=== PATIENT | female | born 1970 | race Caucasian/White ===

== ENCOUNTER 2018-07-14 07:00 | Inpatient (IN) | payer OTHER ==
[~2018-07-14 07:00] MED LIST: ASA-EC81 MG PO; COZAAR100 MG PO; GLUCOPHAGE XR500 MG PO; HUMULIN 70100 UNIT/2 SUBCUTANEO; ISORDIL10 MG PO; ISOSORBIDE MONO10 MG PO; LANTUS SOL100 UNIT/1 SUBCUTANEO; NORVASC5 MG PO; VERAPAMIL ER120 MG PO
== END 2018-08-13 10:00 | disposition home or self-care (01) | DRG 579 ==
LOC: EDSTATUS 07:00 → CIR.AMB 07:00 → NUCLEAR 07:00 → CIR.AMB 08-11 06:15 → EDSTATUS 08-11 07:00 → CIR.AMB 08-11 13:00 → O/R 08-11 13:00 → CIR.AMB 08-13 15:00
PROVIDERS: Plastic Surgery; ADMIT Surgery
PROC: 0HBT0ZZ Excision of Right Breast, Open Approach (ICD-10-PCS; 2018-08-11)
PROC: 0BH17EZ Insertion of Endotracheal Airway into Trachea, Via Natural or Artificial Opening (ICD-10-PCS; 2018-08-11)
PROC: 5A1935Z Respiratory Ventilation, Less than 24 Consecutive Hours (ICD-10-PCS; 2018-08-11)
PROC: 0H0V0ZZ Alteration of Bilateral Breast, Open Approach (ICD-10-PCS; principal; 2018-08-11 15:00)
PROC: 07B50ZX Excision of Right Axillary Lymphatic, Open Approach, Diagnostic (ICD-10-PCS; 2018-08-11 15:00)
PROC: 3E0F7GC Introduction of Other Therapeutic Substance into Respiratory Tract, Via Natural or Artificial Opening (ICD-10-PCS; 2018-08-12)
DX: C50.411 Malignant neoplasm of upper-outer quadrant of right female breast (principal); J95.821 Acute postprocedural respiratory failure; N62 Hypertrophy of breast; E66.01 Morbid (severe) obesity due to excess calories; E11.9 Type 2 diabetes mellitus without complications; I10 Essential (primary) hypertension; G47.33 Obstructive sleep apnea (adult) (pediatric)